=== PATIENT | male | born 1965 | race Caucasian/White ===

== ENCOUNTER 2021-07-25 23:38 | Observation (INO) | payer OTHER, SELFPAY ==
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
--- NOTE | ~2021-07-25 | US_ITS ---
EXAMINATION: US venous doppler [facility] DATE: 07/26/2021 12:37 INDICATION: Calf pain. TECHNIQUE: Grayscale ultrasound images without and with compression and Doppler ultrasound images of the bilateral lower extremity veins were obtained. COMPARISON: None. FINDINGS: The visualized portions of right common femoral vein, profunda (deep) femoral vein, femoral vein, pop liteal vein, peroneal veins, posterior tibial veins, and greater saphenous vein outflow are patent. The visualized portions of left common femoral vein, profunda femoral vein, femoral vein, popliteal v ein, peroneal veins, posterior tibial veins, and greater saphenous vein outflow are patent. IMPRESSION: 1. No deep venous thrombosis. Reviewed, dictated and finalized at location A.
[2021-07-25 23:40] VITALS: BP 215/101; PULSE 64; RESP 18; TEMP 36.6; O2SAT 99
[2021-07-25 23:54] VITALS: PULSE 71; RESP 21; O2SAT 100
[2021-07-25 23:56] VITALS: BP 196/105; PULSE 67; RESP 12; O2SAT 100
--- NOTE | 2021-07-25 23:56 | ECG_ITS ---
Measurements Intervals [place] Rate: 70 P: 66 FL: 168 QRS: 53 QRSD: 88 T: 56 QT: 375 QTc: 406 Interpretive Statements SINUS RHYTHM DELAYED PRECORDIAL R/S TRANSITION BASELINE ARTIFACT- I, III, AVR, AVL BORDERLINE ECG Electronically Signed On 07-26-2021 6:41:18 CDT by Gerhard Wylie D.O.
--- NOTE | 2021-07-25 23:58 | ED.CHESTPAIN ---
HPI - Chest Pain General Chief Complaint: Chest Pain Stated Complaint: abd/ chest pain Time Seen by Provider: 07/25/21 23:55 Source: patient Mode of arrival: ambulatory Limitations: no limitations History of Present Illness HPI narrative: Patient is a 56-year-old male complaining of chest pain, substernal, 7 out of 10, tightness, radiating to back accompanied by shortness of breath that started today. Patient denies any abdominal pain, nausea, vomiting, diaphoresis, fever or chills. Related Data Home Medications Medication Instructions Recorded Confirmed albuterol sulfate 1 - 2 puff INHALATION Q4H PRN 02/08/19 aspirin 81 mg PO DAILY 02/09/19 ibuprofen 800 mg PO Q6H PRN 02/09/19 Allergies Allergy/AdvReac Type Severity Reaction Status Date / Time clindamycin Allergy Intermediate Rash Verified 07/25/21 23:42 Penicillins Allergy Mild Rash Verified 07/25/21 23:42 Review of Systems Review of Systems: All systems reviewed & are unremarkable except as noted in HPI and below Constitutional: Constitutional: Denies body ache(s), Denies chills, Denies excessive sweating, Denies fatigue, Denies fever(s), Denies headache(s), Denies lethargy, Denies malaise, Denies weakness and Denies weight loss Eyes: Eyes: Denies blurry vision, Denies change in vision and Denies loss of vision ENT: Denies dizziness, Denies ear discharge, Denies headache(s), Denies lip swelling, Denies epistaxis, Denies nasal congestion, Denies neck pain, Denies throat swelling and Denies tongue swelling Cardiovascular: Cardiovascular: Denies diaphoresis, Denies rapid heart rate, Denies edema, Denies irregular heart rhythm, Denies lightheadedness, Denies palpitations, Denies dyspnea and Denies dyspnea on exertion Respiratory: Respiratory: Denies chest congestion, Denies cough, Denies hemoptysis, Denies dyspnea and Denies dyspnea on exertion Gastrointestinal: Gastrointestinal: Denies abdominal pain, Denies melena, Denies hematochezia, Denies diarrhea, Denies nausea, Denies vomiting and Denies hematemesis Musculoskeletal: Musculoskeletal: Denies abnormal gait, Denies deformity, Denies joint swelling, Denies limited range of motion, Denies neck pain and Denies numbness Neurologic: Denies Abnormal speech present, Denies abnormal gait, Denies confusion, Denies dizziness, Denies headache(s), Denies focal weakness, Denies loss of vision, Denies numbness, Denies Other visual disturbances, Denies Sensory deficit (Neuro) and Denies weakness Psychiatric: Psychiatric: Denies confusion, Denies depression, Denies auditory hallucinations, Denies homicidal ideation and Denies suicidal ideation Endocrine: Endocrine: Denies cold intolerance, Denies excessive sweating, Denies fatigue, Denies heat intolerance and Denies palpitations Hematologic/Lymphatic: Hematologic/Lymphatic: Denies easy bleeding and Denies easy bruising Allergic/Immunologic: Allergic/Immunologic: Denies lip swelling, Denies throat swelling and Denies tongue swelling PMFSH Past Medical History Medical History Seizures Surgical History Surgical History History of adenoidectomy History of cholecystectomy Social History Social History Smoking status: Current every day smoker Comments Past medical history: COPD, seizures, coronary artery disease Family history: Positive for coronary artery disease Social history: Positive for smoker, no EtOH or drug use Exam Const: General: cooperative, healthy appearing, comfortable, no acute distress, well developed, alert and awake; No confusion Orientation/consciousness: oriented to person, oriented to place, oriented to time, patient oriented x3 and No confusion Limitations: no limitations HENMT: Head: normal to inspection, normocephalic and atraumatic Ears: hearing grossly normal bilaterally, TM norm
[2021-07-26] VITALS (36 sets, daily range): BP systolic 124–213; BP diastolic 67–108; PULSE 56–77; RESP 12–22; TEMP 36.3–37.1; O2SAT 96–100; BMI 28.7; BMI 28.5
--- NOTE | 2021-07-26 | ECHO_ITS ---
Patient Info Name: Antonio Senior Age: 56 years : 1965 Gender: Male Ht: 70 in Wt: 199 lbs BSA: 2.13 m2 HR: 65 bpm BP: 176 / 79 mmHg Technical Quality: Good Exam Date: 07/26/2021 1:36 PM Exam Location: [facility] Patient Status: Inpatient Admit Date: 07/26/2021 Staff Ordering Physician: Navdeep Juárez MD Health Informatics Advisor: Stan Lam RDCS, RT Attending Provider: Turner Dhaliwal MD Exam Type: CA echo doppler color flow Study Info Indications R07.9 - Chest pain, unspecified Complete two-dimensional, color flow and Doppler transthoracic echocardiogram is performed. Summary 1. Complete two-dimensional, color flow and Doppler transthoracic echocardiogram is performed. 2. Left ventricular chamber dimension is normal. 3. Left ventricular systolic function is normal, estimated at 55-60%. 4. There is moderately increased left ventricular wall thickness. 5. The left ventricular diastolic function is grade I diastolic dysfunction. 6. E/e' 9 is minimally elevated. 7. Left atrial chamber dimension is mildly enlarged. Left Ventricle E/e' 9 is minimally elevated. Left ventricular chamber dimension is normal. Left ventricular systolic function is normal, estimated at 55-60%. There is moderately increased left ventricular wall thickness. The left ventricular diastolic function is grade I diastolic dysfunction. Right Ventricle Right ventricular systolic function is normal and with normal TAPSE 2.5 cm. Right ventricular chamber dimension is normal. Left Atria Left atrial chamber dimension is mildly enlarged. Right Atria Right atrial chamber dimension is normal. Aortic Valve The aortic valve is trileaflet. There is no aortic valve stenosis. There is no aortic valve regurgitation. Pulmonic Valve There is no pulmonic regurgitation. Mitral Valve There is no mitral valve stenosis. There is no mitral valve regurgitation. Tricuspid Valve There is no tricuspid valve regurgitation. Pericardium/Pleural There is no pericardial effusion. Inferior Vena Cava Normal inferior vena cava with >50% collapse upon inspiration consistent with normal right atrial pressure, 5 mmHg. Aorta The aortic root size at the sinus of Valsalva is normal. Left Ventricular Outflow Tract Name Value Normal LVOT 2D LVOT Diameter 2.0 cm LVOT Doppler LVOT Peak Gradient 5 mmHg LVOT Mean Gradient 3 mmHg LVOT VTI 24 cm LVOT VTI/AV VTI Ratio 0.7 LVOT Stroke Volume 77 ml LVOT CO 5.6 l/min LVOT CI 2.6 l/min/m2 Mitral Valve Name Value Normal MV Doppler MV Decel Shackelf[place] 239 cm/s2 MV PHT 97 ms
[2021-07-26 00:18] LABS: Basophils Absolute Auto 0.1 K/mm3 (0.0-0.1); Basophils Percent Auto 0.6 % (0.2-1.2); Eosinophils Absolute Auto 0.3 K/mm3 (0-0.3); Eosinophils Percent Auto 2.9 % (0-4.4); Hematocrit 45.5 % (42.0-52.0); Hemoglobin 14.7 g/dL (14.0-18.0); Immature Granulocyte Absolute 0.03 K/mm3 (0.00-0.031); Immature Granulocyte Percent A 0.3 % (0-0.5); Lymphocytes Absolute Auto 3.49 K/mm3 (0.9-3.2); Lymphocytes Percent Auto 31.9 % (18.3-44.2); Mean Corpuscular HGB Conc 32.3 g/dl (32-36); Mean Corpuscular Hemoglobin 30.1 pg (26-34); Mean Corpuscular Volume 93.2 fl (80-100); Mean Platelet Volume 10.6 fl (7.4-10.4); Monocytes Percent Auto 8.8 % (2.6-8.5); Neutrophils Absolute Auto 6.1 K/mm3 (1.3-6.7); Neutrophils Percent Auto 55.5 % (45.5-73.1); Platelet Count Result 265 k/mm3 (150-375); Red Blood Count 4.88 M/mm3 (4.6-6.20); Red Cell Distribution Width 13.8 % (11.5-14.5); White Blood Count 10.9 K/mm3 (4.5-10.0)
[2021-07-26 00:24] LABS: Prothrombin Time 12.9 Seconds (11.1-14.7)
[2021-07-26 00:25] LABS: Partial Thromboplastin Time 31.3 SECONDS (22.3-36.8)
[2021-07-26 00:48] LABS: Alanine Aminotransferase 31 U/L (6-50); Albumin Level 4.6 g/dL (3.5-5.1); Alkaline Phosphatase 93 U/L (38-126); Aspartate Amino Transferase 32 U/L (17-59); Bilirubin,Total 0.3 mg/dL (0.2-1.3); Blood Urea Nitrogen 6 mg/dL (9-20); Calcium 8.9 mg/dL (8.4-10.2); Carbon Dioxide 29 mmol/L (22-30); Chloride 101 mmol/L (98-107); Estimated CRCL calculation 93 ml/min; Estimated Glomerular Filt Rate > 60; Glucose 104 mg/dL (65-110); Lipase 47 U/L (23-300); Potassium 4.7 mmol/L (3.4-5.0)
[2021-07-26 00:58] LABS: Troponin I 0.013 ng/mL (0.000-0.034)
[2021-07-26 00:59] LABS: NT Pro B Type Natriuretic Pept 32 pg/mL (5-100)
[2021-07-26 01:06] LABS: Anion Gap 9 mmol/L (8-16); Sodium 139 mmol/L (137-145)
[2021-07-26] MEDS: ASPIRIN 81 MG CHEWABLE TABLET 324 MG PO (01:10)
[2021-07-26] MEDS: MORPHINE SULFATE (*CRX) 2 MG/ML INJ IV PUSH (01:46)
[2021-07-26] MEDS: LABETALOL HCL INJ 100 MG/20 ML VIAL 20 MG IV PUSH (01:46)
--- NOTE | 2021-07-26 02:35 | ADMGEN ---
This patient, Antonio Contreras, was admitted to IMU Room 213-01 at 0230. Patient/family oriented to hospital policies and general routines including ID bracelet, bed and alarms, visiting hours, pain management, procedures, bathroom and other care routines, personal items, smoking policy, room service/diet, and visiting hours. Information on how to activate the Rapid Response Team has been discussed. Patient/Family are encouraged to report perceived risks to care and to ask questions if they do not understand what they are told or what they should do.
[2021-07-26 06:20] LABS: Troponin I 0.019 ng/mL (0.000-0.034)
[2021-07-26] MEDS: ASPIRIN 81 MG CHEWABLE TABLET PO (08:51)
[2021-07-26] MEDS: MONTELUKAST SODIUM 10 MG TABLET PO (08:52)
[2021-07-26] MEDS: busPIRone HCL 10 MG TABLET PO ×2 (08:52→17:00)
[2021-07-26] MEDS: PHENYTOIN SODIUM 100 MG EXTENDED RELEASE CAP PO (08:57)
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
[2021-07-26] MEDS: LOSARTAN POTASSIUM 25 MG TABLET PO (11:06)
[2021-07-26] MEDS: PANTOPRAZOLE 40 MG TABLET PO ×2 (11:17→21:06)
--- NOTE | 2021-07-26 12:43 | PC.NURSE ---
1125- to [place] dept for test
[2021-07-26 13:43] LABS: Appearance Urine Clear (Clear); Bilirubin Urine Negative (Negative); Blood Urine Negative (Negative); Color Urine Yellow (Yellow); Glucose Urine UA Negative (Negative); Ketones Urine Negative (Negative); Leukocyte Esterase Ur Negative LEU/UL (Negative); Nitrate Urine Negative (Negative); Protein Urine Negative (Negative); Specific Grav Ur 1.015 (1.001-1.035); Urobilinogen Urine 0.2 mg/dL (<2.0)
[2021-07-26 13:46] LABS: Add Urine Microscopic? NO
[2021-07-26] MEDS: ACETAMINOPHEN 325 MG TABLET 650 MG PO (18:32)
[2021-07-26] MEDS: PHENYTOIN SODIUM 100 MG EXTENDED RELEASE CAP 200 MG PO (21:05)
[2021-07-26] MEDS: QUEtiapine FUMARATE 25 MG TABLET 50 MG PO (21:06)
[2021-07-26] MEDS: ALBUTEROL SULFATE (*SP) AEROSOL 1 PUFF 2 PUFF INHALATION (21:14)
[2021-07-27] VITALS (7 sets, daily range): BP systolic 117–143; BP diastolic 66–75; PULSE 53–79; RESP 17–20; TEMP 36.1–36.7; O2SAT 96–98
[2021-07-27 04:56] LABS: Cholesterol 252 mg/dL (0-200); HDL Direct 42 mg/dL; Phenytoin Dilantin 4 ug/mL (10-20); Triglycerides 84 mg/dL (<150)
[2021-07-27 05:04] LABS: LDL Cholesterol Direct 161 mg/dL
[2021-07-27] MEDS: ASPIRIN 81 MG CHEWABLE TABLET PO (08:22)
[2021-07-27] MEDS: busPIRone HCL 10 MG TABLET PO (08:22)
[2021-07-27] MEDS: LOSARTAN POTASSIUM 25 MG TABLET PO (08:22)
[2021-07-27] MEDS: MONTELUKAST SODIUM 10 MG TABLET PO (08:22)
[2021-07-27] MEDS: PANTOPRAZOLE 40 MG TABLET PO (08:22)
[2021-07-27] MEDS: ACETAMINOPHEN 325 MG TABLET 650 MG PO (08:27)
[2021-07-27] MEDS: PHENYTOIN SODIUM 100 MG EXTENDED RELEASE CAP PO (08:51)
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
== END 2021-07-27 14:51 | disposition home or self-care (01) ==
LOC: ANHED 07-26 02:01 → ANHIMU 07-26 03:01
PROVIDERS: Admitting Provider Internal Medicine; Emergency Provider Emergency Medicine; PCP Nurse Practitioner Family; Visit Provider Internal Medicine
DX: R07.9 Chest pain, unspecified (principal); I16.0 Hypertensive urgency; M54.9 Dorsalgia, unspecified; M54.2 Cervicalgia; R10.9 Unspecified abdominal pain; V89.2XXA Person injured in unspecified motor-vehicle accident, traffic, initial encounter; F17.210 Nicotine dependence, cigarettes, uncomplicated; I25.10 Atherosclerotic heart disease of native coronary artery without angina pectoris; J44.9 Chronic obstructive pulmonary disease, unspecified; G40.909 Epilepsy, unspecified, not intractable, without status epilepticus; Z79.82 Long term (current) use of aspirin; F41.8 Other specified anxiety disorders; I73.9 Peripheral vascular disease, unspecified
CPT/HCPCS: 36415; 70450; 71046; 71275; 72125; 74174; 80053; 80061; 80185; 81003; 83690; 83880; 84484; 85025; 85610; 85730; 93005; 93306; 93970; 94640; 96374; 96375; 99285; A9270; G0378; J2270; Q9967

== ENCOUNTER 2023-01-04 23:27 | Emergency (ER) | payer OTHER, SELFPAY ==
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
[2023-01-04 23:29] VITALS: BP 173/85; PULSE 76; RESP 15; TEMP 36.4; O2SAT 100
--- NOTE | 2023-01-05 00:22 | ED.GENADULT ---
HPI - General Adult General Chief complaint: Extremity Injury, Lower <JINNY Swartz Last Filed: 01/05/23 01:21> Stated complaint: Left lower plasencia pain, lost balance on steps <JINNY Swartz Last Filed: 01/05/23 01:21> Time Seen by Provider: 01/04/23 23:37 <Fredy Wyman PA-C - Last Filed: 01/05/23 01:21> Source: patient <JINNY Swartz Last Filed: 01/05/23 01:21> Mode of arrival: ambulatory <JINNY Swartz Last Filed: 01/05/23 01:21> Limitations: no limitations <JINNY Swartz Last Filed: 01/05/23 01:21> History of Present Illness HPI narrative: This is a 57-year-old male who presents to the ED with chief complaint of left lower leg pain following an injury tonight. Patient states he was walking on steps at work when he accidentally slipped and hit his plasencia went directly into the corner of the stair. Pain to left plasencia. He has minor abrasion to the left hand as well but states this is not painful. Denies any numbness or weakness. Denies any further site of pain or injury. <Fredy Wyman PA-C - Last Filed: 01/05/23 01:21> Related Data Home medications: Home Medications Medication Instructions Recorded Confirmed aspirin 81 mg chewable tablet 81 mg PO DAILY 02/09/19 07/26/21 buspirone 10 mg tablet 10 mg PO BID 07/26/21 07/26/21 diclofenac sodium 75 mg 75 mg PO BID 07/26/21 07/26/21 tablet,delayed release loratadine 10 mg tablet 10 mg PO DAILY 07/26/21 07/26/21 quetiapine 50 mg tablet 50 mg PO HS 07/26/21 07/26/21 <JINNY Swartz Last Filed: 01/05/23 01:21> Allergies/adverse reactions: Allergies Allergy/AdvReac Type Severity Reaction Status Date / Time clindamycin Allergy Intermediate Rash Verified 01/04/23 23:38 Penicillins Allergy Mild Rash Verified 01/04/23 23:38 steroids Allergy Intermediate Hyperactive Uncoded 08/25/21 16:02 <JINNY Swartz Last Filed: 01/05/23 01:21> Review of Systems Review of Systems: All systems as dictated in HPI <JINNY Swartz Last Filed: 01/05/23 01:21> PMFSH Past Medical History Medical History: Medical History Anxiety with depression COPD (chronic obstructive pulmonary disease) Leg fracture, left as a child PAD (peripheral artery disease) Left femoral stent placement Seizures <JINNY Swartz Last Filed: 01/05/23 01:21> Surgical History Surgical History: Surgical History History of adenoidectomy History of cholecystectomy complicated by cardiac arrest during the procedure <JINNY Swartz Last Filed: 01/05/23 01:21> Family History Family History: Family History Sibling Heart disease CAD in his 2 brothers in there 60's; another brother with sudden <JINNY Swartz Last Filed: 01/05/23 01:21> Social History Social History: Social History Social History: Denies alcohol use. Denies drug use. Lives with his girlfriend. Full code. Nominates his girlfriend Garrison Watkins to be the individual make medical decisions for him if he is unable. Smoking packs per day: 1.5 Smoking cigarettes per day: 30.0 Years smoked: 35 Smoking pack-years: 52.50 Smoking status: Current every day smoker Tobacco type: cigarettes Second hand tobacco smoke exposure: Yes Alcohol intake: former Substance use: never Substance use type: does not use Spiritual care concerns: No <JINNY Swartz Last Filed: 01/05/23 01:21> Exam Narrative: GENERAL: Well-appearing, well-nourished, and in no acute distress. HEAD: Normocephalic, atraumatic. EYES: PERRLA and EOMI. ENT: Nares clear, no rhinorrhea or epistaxis. Mucous membranes moist. Oropharynx without tonsillar hypertrophy exudate or other lesions. NEC
== END 2023-01-05 01:14 | disposition home or self-care (01) ==
LOC: ANHED 01-05 01:06
PROVIDERS: Emergency Provider Physician Assistant; PCP Nurse Practitioner Family
DX: S80.12XA Contusion of left lower leg, initial encounter (principal); J44.9 Chronic obstructive pulmonary disease, unspecified; I73.9 Peripheral vascular disease, unspecified; F41.8 Other specified anxiety disorders; F17.210 Nicotine dependence, cigarettes, uncomplicated; Z90.49 Acquired absence of other specified parts of digestive tract; Z79.82 Long term (current) use of aspirin; W10.9XXA Fall (on) (from) unspecified stairs and steps, initial encounter
CPT/HCPCS: 73590; 99283

== ENCOUNTER 2023-03-19 07:56 | Emergency (ER) | payer OTHER, SELFPAY ==
[2023-03-19] VITALS (16 sets, daily range): BP systolic 132–167; BP diastolic 72–93; PULSE 67–88; RESP 15–23; TEMP 37–37.3; O2SAT 95–100
--- NOTE | 2023-03-19 10:18 | ED.GENADULT ---
HPI - General Adult General Chief complaint: Upper Respiratory Infection Stated complaint: COVID Time Seen by Provider: 03/19/23 09:38 Source: patient Mode of arrival: ambulatory Limitations: no limitations History of Present Illness HPI narrative: This is a 58-year-old male who presents to the ED with chief complaint URI symptoms for the past 2 days. Reports he was seen urgent care yesterday and tested positive for COVID. Reports he has a lot of headache. He has a history of epilepsy and just wants to get checked out. Patient reports he has had some intermittent fevers and does not want them to trigger an episode of epilepsy. He reports that he has been taking his medications regularly. History of COPD as well and has been taking his inhaler. States he feels very dehydrated. Denies chest pain, abdominal pain, nausea, vomiting, diarrhea, LOC, numbness, weakness, neck pain. Related Data Home Medications Medication Instructions Recorded Confirmed aspirin 81 mg chewable tablet 81 mg PO DAILY 02/09/19 07/26/21 buspirone 10 mg tablet 10 mg PO BID 07/26/21 07/26/21 diclofenac sodium 75 mg 75 mg PO BID 07/26/21 07/26/21 tablet,delayed release loratadine 10 mg tablet 10 mg PO DAILY 07/26/21 07/26/21 quetiapine 50 mg tablet 50 mg PO HS 07/26/21 07/26/21 Allergies Allergy/AdvReac Type Severity Reaction Status Date / Time clindamycin Allergy Intermediate Rash Verified 03/19/23 09:56 Penicillins Allergy Mild Rash Verified 03/19/23 09:56 steroids Allergy Intermediate Hyperactive Uncoded 03/19/23 09:56 Review of Systems Review of Systems: All systems as dictated in HPI [facility] Past Medical History Medical History Anxiety with depression COPD (chronic obstructive pulmonary disease) Leg fracture, left as a child PAD (peripheral artery disease) Left femoral stent placement Seizures Surgical History Surgical History History of adenoidectomy History of cholecystectomy complicated by cardiac arrest during the procedure Family History Family History Sibling Heart disease CAD in his 2 brothers in there 60's; another brother with sudden Social History Social History Social History: Denies alcohol use. Denies drug use. Lives with his girlfriend. Full code. Nominates his girlfriend Garrison Watkins to be the individual make medical decisions for him if he is unable. Smoking packs per day: 1.5 Smoking cigarettes per day: 30.0 Years smoked: 35 Smoking pack-years: 52.50 Smoking status: Current every day smoker Tobacco type: cigarettes Second hand tobacco smoke exposure: Yes Alcohol intake: former Substance use: never Substance use type: does not use Spiritual care concerns: No Exam Narrative: GENERAL: Well-appearing, well-nourished, and in no acute distress. HEAD: Normocephalic, atraumatic. EYES: PERRLA and EOMI. ENT: Dry mucous membranes. Posterior oropharynx erythematous with no swelling or tonsillar hypertrophy. No exudates. nares clear, no rhinorrhea or epistaxis. Mucous membranes moist. NECK: Supple. No adenopathy or masses. CHEST: No respiratory distress. Clear to auscultation. No wheezes rales or rhonchi. 95% room air. HEART: Regular rate and rhythm. No murmur heard. Normal peripheral pulses. ABDOMEN: Soft, nontender, nondistended, normal active bowel sounds. MSK: Normal range of motion. No edema. SKIN: Warm, dry, no rash. NEURO: Alert and oriented x3. No focal deficits. PSYCH: Normal mood and affect. Course Vital Signs Vital signs: Vital Signs Temperature 98.7 F 03/19/23 08:01 Pulse Rate 88 03/19/23 08:01 Respiratory Rate 18 03/19/23 08:01 Blood Pressure 142/72 H 03/19/23 08:01 Pulse Oximetry 96 03/19/23 08:01 Oxygen Delivery Room
[2023-03-19] MEDS: ACETAMINOPHEN 500 MG TABLET 1000 MG PO (10:28)
[2023-03-19] MEDS: SODIUM CHLORIDE 0.9% IV 1,000 ML 999 ML IV CONT (10:29)
[2023-03-19 10:31] LABS: Basophils Percent Auto 0.3 % (0.2-1.2); Eosinophils Percent Auto 0.1 % (0-4.4); Hematocrit 43.9 % (42.0-52.0); Hemoglobin 14.3 g/dL (14.0-18.0); Immature Granulocyte Absolute 0.03 K/mm3 (0.00-0.031); Immature Granulocyte Percent A 0.4 % (0-0.5); Lymphocytes Absolute Auto 0.69 K/mm3 (0.9-3.2); Lymphocytes Percent Auto 10.1 % (18.3-44.2); Mean Corpuscular HGB Conc 32.6 g/dl (32-36); Mean Corpuscular Hemoglobin 30.1 pg (26-34); Mean Corpuscular Volume 92.4 fl (80-100); Monocytes Absolute Auto 1.5 K/mm3 (0.1-0.6); Monocytes Percent Auto 21.3 % (2.6-8.5); Neutrophils Absolute Auto 4.6 K/mm3 (1.3-6.7); Neutrophils Percent Auto 67.8 % (45.5-73.1); Platelet Count Result 223 k/mm3 (150-375); Red Blood Count 4.75 M/mm3 (4.6-6.20); Red Cell Distribution Width 13.7 % (11.5-14.5); White Blood Count 6.8 K/mm3 (4.5-10.0)
[2023-03-19 10:41] LABS: Anion Gap 8 mmol/L (8-16); Blood Urea Nitrogen 13 mg/dL (9-20); Calcium 8.6 mg/dL (8.4-10.2); Carbon Dioxide 25 mmol/L (22-30); Chloride 102 mmol/L (98-107); Estimated CRCL calculation 102 ml/min; Estimated Glomerular Filt Rate > 60; Glucose 105 mg/dL (65-110); Potassium 4.1 mmol/L (3.4-5.0); Sodium 135 mmol/L (137-145)
[2023-03-19] MEDS: KETOROLAC 15 MG/ML VIAL (*BKC) IV PUSH (11:29)
[2023-03-19] MEDS: ONDANSETRON INJ 4 MG/2 ML VIAL IV PUSH (11:29)
== END 2023-03-19 11:59 | disposition home or self-care (01) ==
PROVIDERS: Emergency Provider Physician Assistant; PCP Nurse Practitioner Family
DX: U07.1 COVID-19 (principal); J06.9 Acute upper respiratory infection, unspecified; G40.909 Epilepsy, unspecified, not intractable, without status epilepticus; J44.9 Chronic obstructive pulmonary disease, unspecified; I73.9 Peripheral vascular disease, unspecified; F41.8 Other specified anxiety disorders; F17.210 Nicotine dependence, cigarettes, uncomplicated; Z90.49 Acquired absence of other specified parts of digestive tract; Z79.82 Long term (current) use of aspirin
CPT/HCPCS: 36415; 80048; 85025; 96361; 96374; 96375; 99284; A9270; J1885; J2405; J7030

== ENCOUNTER 2023-08-21 15:49 | Emergency (ER) | payer OTHER, SELFPAY ==
--- NOTE | ~2023-08-21 | XR_ITS ---
EXAMINATION: XR chest 1V portable Exam Date/Time: 08/21/2023 18:00 CDT HISTORY: cough , copd Comparison: 07/26/2021. RESULT: Lines, tubes, and devices: None. Lungs and pleura: Clear. Cardiomediastinal silhouette: Stable. Other: No acute osseous or upper abdominal finding. IMPRESSION: No acute cardiopulmonary process. Reviewed, dictated and finalized at location K.
[2023-08-21 15:59] VITALS: BP 132/78; PULSE 89; RESP 20; TEMP 36.6; O2SAT 98
[2023-08-21 17:24] LABS: Influenza A QL RT-PCR Negative (Negative); Influenza B QL RT-PCR Negative (Negative); RSV RNA, RT-PCR Negative (Negative); SARS-CoV-2 RNA PCR Negative (Negative)
--- NOTE | 2023-08-21 17:52 | ECG_ITS ---
Test Date: 2023-08-21 18:13:51 Measurements Intervals [place] Rate: 79 P: 57 DC: 159 QRS: 56 QRSD: 90 T: 39 QT: 372 QTc: 427 Interpretive Statements SINUS RHYTHM No previous ECG available for comparison Electronically Signed On 08-22-2023 14:35:21 CDT by Florencia Maldonado M.D.
[2023-08-21 18:15] LABS: Basophils Absolute Auto 0.1 K/mm3 (0.0-0.1); Basophils Percent Auto 0.5 % (0.2-1.2); Eosinophils Absolute Auto 0.2 K/mm3 (0-0.3); Hematocrit 43.2 % (42.0-52.0); Hemoglobin 14.5 g/dL (14.0-18.0); Immature Granulocyte Absolute 0.04 K/mm3 (0.00-0.031); Immature Granulocyte Percent A 0.3 % (0-0.5); Lymphocytes Absolute Auto 2.13 K/mm3 (0.9-3.2); Lymphocytes Percent Auto 18.1 % (18.3-44.2); Mean Corpuscular HGB Conc 33.6 g/dl (32-36); Mean Corpuscular Hemoglobin 30.9 pg (26-34); Mean Corpuscular Volume 92.1 fl (80-100); Mean Platelet Volume 10.5 fl (7.4-10.4); Monocytes Absolute Auto 1.2 K/mm3 (0.1-0.6); Monocytes Percent Auto 10.3 % (2.6-8.5); Neutrophils Absolute Auto 8.1 K/mm3 (1.3-6.7); Neutrophils Percent Auto 68.8 % (45.5-73.1); Platelet Count Result 260 k/mm3 (150-375); Red Blood Count 4.69 M/mm3 (4.6-6.20); Red Cell Distribution Width 13.3 % (11.5-14.5); White Blood Count 11.8 K/mm3 (4.5-10.0)
[2023-08-21 18:25] LABS: Alanine Aminotransferase 27 U/L (6-50); Albumin Level 4.7 g/dL (3.5-5.1); Alkaline Phosphatase 117 U/L (38-126); Anion Gap 6 mmol/L (4-12); Aspartate Amino Transferase 29 U/L (17-59); Bilirubin,Total 0.6 mg/dL (0.2-1.3); Blood Urea Nitrogen 8 mg/dL (9-20); Calcium 9.1 mg/dL (8.4-10.2); Carbon Dioxide 29 mmol/L (22-30); Chloride 104 mmol/L (98-107); Estimated CRCL calculation 102 ml/min; Estimated Glomerular Filt Rate > 60; Glucose 97 mg/dL (65-110); Potassium 4.3 mmol/L (3.4-5.0); Sodium 139 mmol/L (137-145)
--- NOTE | 2023-08-21 18:30 | ED.URI ---
HPI - URI/Sore Throat General Chief Complaint: Upper Respiratory Infection Stated Complaint: flu symptoms Time Seen by Provider: 08/21/23 17:47 Source: patient Mode of arrival: ambulatory Limitations: no limitations History of Present Illness HPI Narrative: 58-year-old with a history of COPD, anxiety disorder here with a complaint of cough for past 2 days. He has occasional short of breath his knee he uses nebulizers at home. He denies any fever or chills. Denies any chest pain however complains of pain in his ribs whenever he coughs. No history of nausea vomiting. MD elicited complaint: cough and nasal congestion Pertinent past history: COPD Onset (ago): day(s) (2) Consistency: constant Severity: moderate Description of mucous: clear Exacerbating factors: nothing Associated symptoms: denies other symptoms Related Data Home Medications Medication Instructions Recorded Confirmed aspirin 81 mg chewable tablet 81 mg PO DAILY 02/09/19 07/26/21 buspirone 10 mg tablet 10 mg PO BID 07/26/21 07/26/21 loratadine 10 mg tablet 10 mg PO DAILY 07/26/21 07/26/21 quetiapine 50 mg tablet 50 mg PO HS 07/26/21 07/26/21 ascorbic acid (vitamin C) 1,000 mg 1 g PO DAILY 04/24/23 capsule Allergies Allergy/AdvReac Type Severity Reaction Status Date / Time clindamycin Allergy Intermediate Rash Verified 08/21/23 16:03 Penicillins Allergy Mild Rash Verified 08/21/23 16:03 steroids Allergy Intermediate Hyperactive Uncoded 04/24/23 11:36 Review of Systems Review of Systems: All systems reviewed & are unremarkable except as noted in HPI and below Constitutional: Constitutional: Reports no additional constitutional complaints Eyes: Eyes: Reports no additional eye complaints ENT: Reports system reviewed and no additional complaints, except as documented Cardiovascular: Cardiovascular: Reports no additional cardiovascular complaints Respiratory: Respiratory: Reports as per HPI Musculoskeletal: Musculoskeletal: Reports no additional musculoskeletal complaints Integumentary/Breasts: Skin/Breast: Reports system reviewed and no additional complaints, except as docu Neurologic: Reports system reviewed and no additional complaints, except as documented [facility] Past Medical History Medical History Anxiety with depression COPD (chronic obstructive pulmonary disease) Leg fracture, left as a child PAD (peripheral artery disease) Left femoral stent placement Seizures Surgical History Surgical History History of adenoidectomy History of cholecystectomy complicated by cardiac arrest during the procedure Family History Family History Sibling Heart disease CAD in his 2 brothers in there 60's; another brother with sudden Social History Social History Social History: Denies alcohol use. Denies drug use. Lives with his girlfriend. Full code. Nominates his girlfriend Garrison Watkins to be the individual make medical decisions for him if he is unable. Smoking packs per day: 1 Smoking cigarettes per day: 20.0 Years smoked: 35 Smoking pack-years: 35.00 Smoking status: Current every day smoker Tobacco type: cigarettes Second hand tobacco smoke exposure: Yes Alcohol intake: former Substance use: never Substance use type: does not use Do You Feel Safe in your Home?: Yes Lack of Transportation: No Lack of Food: Never True Current Housing: I Have Housing Concerned About Future Housing: No Difficulty Paying Gas/Electric Bills: No Difficulty Paying for Meds: No Currently Unemployed: No Education: High School Diploma/GED Difficulty w/ Childcare or Family Care: No Spiritual care concerns: No Exam Narrative: GENERAL: Well-appearing, well-nourished, and in no acute distr
[2023-08-21 18:34] LABS: NT Pro B Type Natriuretic Pept < 20 pg/mL (19.9-100)
[2023-08-21 18:52] VITALS: BP 146/68; PULSE 83; RESP 28; O2SAT 95
== END 2023-08-21 18:58 | disposition home or self-care (01) ==
PROVIDERS: Emergency Medicine; Emergency Provider Family Medicine; PCP Nurse Practitioner Family
DX: J44.89 Other specified chronic obstructive pulmonary disease (principal); Z20.822 Contact with and (suspected) exposure to COVID-19; I73.9 Peripheral vascular disease, unspecified; F41.8 Other specified anxiety disorders; F17.210 Nicotine dependence, cigarettes, uncomplicated; Z90.49 Acquired absence of other specified parts of digestive tract; Z79.82 Long term (current) use of aspirin; Z79.899 Other long term (current) drug therapy
CPT/HCPCS: 36415; 71045; 80053; 83880; 85025; 87040; 87637; 93005; 99283

== ENCOUNTER 2024-01-28 15:27 | Emergency (ER) | payer OTHER, SELFPAY ==
--- NOTE | ~2024-01-28 | CT_ITS ---
EXAMINATION: CT brain wo con DATE: 01/28/2024 18:08 INDICATION: fall in shower, possible HI . TECHNIQUE: Computed tomography (CT) of the head was performed without intravenous contrast. The mA wa s adjusted according to patient size. Iterative reconstruction technique was employed. The dose-lengt h product was 681.00 mGy-cm. COMPARISON: 07/26/2021. FINDINGS: No acute intracranial hemorrhage or extra-axial fluid collection. No hydrocephalus, mass, or herniation. No acute ischemic infarct. Unremarkable dural venous sinus attenuation. No acute osseous abnormality. Poorly pneumatized mastoid air cells, ethmoid mucosal thickening, the remaining aerated spaces are cl ear. Atherosclerotic intracranial calcifications. Left frontal meningioma. IMPRESSION: No acute intracranial process. Reviewed, dictated and finalized at location K. TIC PHYSICIAN
--- NOTE | ~2024-01-28 | CT_ITS ---
EXAMINATION: CT chest abdomen pelvis w con DATE: 01/28/2024 18:08 INDICATION: fall in shower, pain ribs/abd/R lower abd hematoma . TECHNIQUE: Computed tomography (CT) of the chest, abdomen, and pelvis was performed with 100 mL Omnip aque-350 intravenous contrast. Automated exposure control and iterative reconstruction technique were employed. The dose-length product was 1077.11 mGy-cm. COMPARISON: 07/26/2021 FINDINGS: CHEST: No thoracic aortic injury. No mediastinal hematoma. No pericardial effusion. No acute lung injury. No pleural effusion or pneumothorax. ABDOMEN/PELVIS: No solid organ injury. 6.0 cm simple right renal cyst. No evidence of bowel or mesenteric injury. Status post cholecystectomy. Diverticulosis without divert iculitis. No free fluid or free air. No retroperitoneal hematoma. Pelvic contents are atraumatic. MUSCULOSKELETAL: Nondisplaced fracture of the right anterolateral seventh rib. No fracture or traumatic malalignment of the thoracic or lumbar spine. 5.8 x 3.9 cm right lateral subcutaneous hematoma with surrounding stranding, at the level of the righ t iliac crest. IMPRESSION: Nondisplaced fracture of the right anterolateral seventh rib. 5.8 cm right lateral subcutaneous hematoma at the level of the right iliac crest. Reviewed, dictated and finalized at location K. [employer]MENT [employer]ANNER IMPRESSION: Nondisplaced fracture of the right anterolateral seventh rib. 5.8 cm right lateral subcutaneous hematoma at the level of the right iliac oscar t.
--- NOTE | ~2024-01-28 | XR_ITS ---
EXAMINATION: [id number] Exam Date/Time: 01/28/2024 16:20 RN CARDIOVASCULAR HISTORY: fall Comparison: 08/21/23. RESULT: Lines, tubes, and devices: None. Lungs and pleura: Clear. Cardiomediastinal silhouette: Stable. Other: No acute osseous or upper abdominal finding. IMPRESSION: No acute cardiopulmonary process. No acute osseous finding in the right ribs. Reviewed, dictated and finalized at location K. CARDIOVASCULAR
--- NOTE | ~2024-01-28 | CT_ITS ---
EXAMINATION: CT cervical spine wo con DATE: 01/28/2024 18:08 INDICATION: fall in shower TECHNIQUE: Computed tomography (CT) of the cervical spine was performed without intravenous contrast. Automated exposure control and iterative reconstruction technique were employed. The dose-length pro duct was 485.64 mGy-cm. COMPARISON: None. FINDINGS: Vertebral Body Alignment: Intact. Craniocervical and atlantoaxial alignment: Moderate degenerative change. Alignment intact. Osseous structures/fracture: No evidence of a lytic or blastic process in the visualized spine. No e vidence of acute fracture. Cervical soft tissues: The paraspinal soft tissues planes are maintained. 1.7 cm right thyroid nodule . Degenerative changes: Degenerative changes, without severe neural foraminal or central canal narrowin g. IMPRESSION: No acute fracture or traumatic malalignment in the cervical spine. 1.7 cm right thyroid nodule, recommend outpatient thyroid ultrasound for further characterization. Reviewed, dictated and finalized at location K. SCALER IMPRESSION: No acute fracture or traumatic malalignment in the cervical spine. 1.7 cm right thyroid nodule, recommend outpatient thyroid ultrasound for furthe r characterization.
[2024-01-28 15:30] VITALS: BP 172/86; PULSE 92; RESP 17; TEMP 36.4; O2SAT 100
--- NOTE | 2024-01-28 17:10 | ED_ITS ---
HPI - Fall General Chief Complaint: Fall <JINNY Gonzalez Last Filed: 01/28/24 17:20> Stated Complaint: fall <JINNY Gonzalez Last Filed: 01/28/24 17:20> Time Seen by Provider: 01/28/24 17:10 <JINNY Gonzalez Last Filed: 01/28/24 17:20> Focused HPI: Patient is a 58 y/o male who presents to the ED with c/o a fall. Patient reports he slipped in the shower and fell to onto his R side. Denied feeling dizzy/lightheaded, passing out. Does not think he hit his head, but is unsure. Denied LOC. C/o severe pain to his R anterolateral ribs, R upper and lateral lower abdomen. Worse with deep breathing, movement. Reports having mild difficulty breathing d/t pain. Denies N/V. GENERAL: Appears older than stated age, and in no acute distress. HEAD: Normocephalic, atraumatic. CHEST: Clear to auscultation. ?No respiratory distress. HEART: Regular rate and rhythm.? MSK: Moderate TTP in R anterior lateral chest wall/inferior rib cage. TTP along upper thoracic spine, R posterior scapular region. ABD: Mild TTP in upper abdomen. Normoactive BS. Hematoma formation in R lateral lower abdomen with bruising present. NEURO: ?Alert and oriented x3. Follows commands. Patient screened in triage and initial orders placed.? ?Additional care and disposition to be based upon?diagnostic testing and treatment. <JINNY Gonzalez Last Filed: 01/28/24 17:20> Source: patient <JINNY Gonzalez Last Filed: 01/28/24 17:20> Mode of arrival: ambulatory <JINNY Gonzalez Last Filed: 01/28/24 17:20> Limitations: no limitations <JINNY Gonzalez Last Filed: 01/28/24 17:20> History of Present Illness HPI Narrative: HPI per MSE. Pt fell in shower landing on right side on tub. Pt coplains of right rib pain ans some right hip apin. <Lissa Syed III, DO - Last Filed: 01/28/24 19:01> Related Data Home Medications: Home Medications Medication Instructions Recorded Confirmed aspirin 81 mg chewable tablet 81 mg PO DAILY 02/09/19 07/26/21 buspirone 10 mg tablet 10 mg PO BID 07/26/21 07/26/21 loratadine 10 mg tablet 10 mg PO DAILY 07/26/21 07/26/21 quetiapine 50 mg tablet 50 mg PO HS 07/26/21 07/26/21 ascorbic acid (vitamin C) 1,000 mg 1 g PO DAILY 04/24/23 capsule <JINNY Gonzalez Last Filed: 01/28/24 17:20> Allergies/Adverse Reactions: Allergies Allergy/AdvReac Type Severity Reaction Status Date / Time clindamycin Allergy Intermediate Rash Verified 08/21/23 16:03 Penicillins Allergy Mild Rash Verified 08/21/23 16:03 steroids Allergy Intermediate Hyperactive Uncoded 04/24/23 11:36 <JINNY Gonzalez Last Filed: 01/28/24 17:20> Review of Systems Review of Systems: All systems reviewed & are unremarkable except as noted in HPI and below <Lissa Syed III, DO - Last Filed: 01/28/24 19:01> PMFSH Past Medical History Medical History: Medical History Anxiety with depression COPD (chronic obstructive pulmonary disease) Leg fracture, left as a child PAD (peripheral artery disease) Left femoral stent placement Seizures <JINNY Gonzalez Last Filed: 01/28/24 17:20> Surgical History Surgical History: Surgical History History of adenoidectomy History of cholecystectomy complicated by cardiac arrest during the procedure <JINNY Gonzalez Last Filed: 01/28/24 17:20> Family History Family History: Family History Sibling Heart disease CAD in his 2 brothers in there 60's; another brother with sudden <Cindi Sagastume PA-C - Last Filed: 01/28/24 17:20> Social History Social History: Social History Social History: Denies alcohol use. Denies drug use. Lives with his girlfriend. Full code. Nominates his girlfriend Garrison Watkins to be the individual make medical decisions for him if he is unable. Smoking packs per day: 1 Smoking cigarettes per day: 20.0 Years smoked: 35 Smoking pack-years: 35.00 Smoking status: Current every day smoker Tobacco type: cigarettes Second hand tobacco smoke exposure: Yes Alcohol intake: former Substance use: never Substance use type: does not use Do You Feel Safe in your Home?: Yes Lack of Transportation: No Lack of Food: Never True Current Housing: I Have Housing Concerned About Future Housing: No Difficulty Paying Gas/Electric Bills: No Difficulty Paying for Meds: No Currently Unemployed: No Education: High School Diploma/GED Difficulty w/ Childcare or Family Care: No Spiritual care concerns: No <Cindi Sagastume PA-C - Last Filed: 01/28/24 17:20> Exam Const: General: healthy appearing and no acute distress <Lissa Ridge Syed III, DO - Last Filed: 01/28/24 19:01> Nutritional Appearance: well nourished <Lissa Ridge Syed III, DO - Last Filed: 01/28/24 19:01> Orientation/consciousness: patient oriented x3 <Lissa Ridge Syed III, DO - Last Filed: 01/28/24 19:01> Limitations: no limitations <Lissa Ridge Syed III, DO - Last Filed: 01/28/24 19:01> HENMT: Head: normal to inspection <Lissa Ridge Syed III, DO - Last Filed: 01/28/24 19:01> Neck: Neck: normal visual inspection and no meningeal signs <Lissa Ridge Syed III, DO - Last Filed: 01/28/24 19:01> Chest: Chest palpation & inspection: tenderness (right anterolateral ribs) <Lissa Ridge Syed III, DO - Last Filed: 01/28/24 19:01> Resp: Effort & Inspection: normal respiratory effort <Lissa Ridge Syed III, DO - Last Filed: 01/28/24 19:01> Auscultation: clear to auscultation bilaterally <Lissa Ridge Syed III, DO - Last Filed: 01/28/24 19:01> Cardio: Rate: regular rate <Lissa Ridge Syed III, DO - Last Filed: 01/28/24 19:01> Rhythm: regular rhythm <Lissa Ridge Syed III, DO - Last Filed: 01/28/24 19:01> GI: GI Palp: Yes Soft to palpation and No Tenderness to palpation present (GI) <Lissa Ridge Syed III, DO - Last Filed: 01/28/24 19:01> Auscultation: normal bowel sounds <Lissa Ridge Syed III, DO - Last Filed: 01/28/24 19:01> Skin: General skin exam: normal color <Lissa Ridge Syed III, DO - Last Filed: 01/28/24 19:01> Wounds: wounds noted (small non fluctuant abscess right posterior shoulder) <Lissa Ridge Syed III, DO - Last Filed: 01/28/24 19:01> Neuro: General: patient oriented x3, moves all extremities, no meningeal signs and no focal motor deficits <Lissa Ridge Syed III, DO - Last Filed: 01/28/24 19:01> Cranial nerves: Yes Nystagmus not present <Lissa Ridge Syed III, DO - Last Filed: 01/28/24 19:01> Speech: normal speech <Lissa Ridge Syed III, DO - Last Filed: 01/28/24 19:01> Extrem: General: no clubbing, cyanosis or edema and no pedal edema <Lissa Ridge Syed III, DO - Last Filed: 01/28/24 19:01> Other: bruising rto right hip <Lissa Ridge Syed III, DO - Last Filed: 01/28/24 19:01> Psych: Mental Status: mental status grossly normal <Lissa Ridge Syed III, DO - Last Filed: 01/28/24 19:01> Affect: normal affect <Lissa Ridge Syed III, DO - Last Filed: 01/28/24 19:01> Attitude: cooperative <Lissa Ridge Syed III, DO - Last Filed: 01/28/24 19: 01> Course Vital Signs Vital signs: Vital Signs Temperature 97.5 F L 01/28/24 15:30 Pulse Rate 92 01/28/24 15:30 Respiratory Rate 17 01/28/24 15:30 Blood Pressure 172/86 H 01/28/24 15:30 Pulse Oximetry 100 01/28/24 15:30 Temperature 97.5 F L 01/28/24 15:30 Pulse Rate 92 01/28/24 15:30 Respiratory Rate 17 01/28/24 15:30 Blood Pressure 172/86 H 01/28/24 15:30 Pulse Oximetry 100 01/28/24 15:30 <JINNY Gonzalez Last Filed: 01/28/24 17:20> Vital Signs Temperature 97.5 F L 01/28/24 15:30 Pulse Rate 92 01/28/24 15:30 Respiratory Rate 17 01/28/24 15:30 Blood Pressure 172/86 H 01/28/24 15:30 Pulse Oximetry 100 01/28/24 15:30 Temperature 97.5 F L 01/28/24 15:30 Pulse Rate 92 01/28/24 15:30 Respiratory Rate 17 01/28/24 15:30 Blood Pressure 172/86 H 01/28/24 15:30 Pulse Oximetry 100 01/28/24 15:30 <Lissa Syed III, DO - Last Filed: 01/28/24 19:01> MDM - Fall MDM Narrative Medical decision making narrative: MSE by ASHLEY in triage. <JINNY Gonzalez Last Filed: 01/28/24 17:20> MSE by ASHLEY in triage. ct head and c spine neg. ct chest right anterolateral fx rib, CT abd pe;vis hematoma right hip no fx. home on pain meds <Lissa Syed III, DO - Last Filed: 01/28/24 19:01> Discharge Plan Discharge Clinical Impression: Closed rib fracture, Abscess <JINNY Gonzalez Last Filed: 01/28/24 17:20> Patient Disposition: Home, Self-Care <JINNY Gonzalez Last Filed: 01/28/24 17:20> Condition: Stable <Cindi Sagastume PA-C - Last Filed: 01/28/24 17:20> Instructions: Antibiotic Form, Rib Fracture (ED), Abscess (ED) <Cindi Sagastume PA-C - Last Filed: 01/28/24 17:20> Prescriptions: New tetracycline 500 mg tablet 500 mg PO TID Qty: 21 0RF hydrocodone-acetaminophen 5-325 mg tablet 1 tablet PO Q6H PRN (Reason: pain) Qty: 14 0RF No Action ascorbic acid (vitamin C) 1,000 mg capsule 1 g PO DAILY phenytoin sodium extended [Dilantin Extended] 100 mg capsule See Rx Instructions .ROUTE .COMPLEX Qty: 90 12RF Dose Instruction: TAKE 1 CAPSULE BY MOUTH THREE TIMES DAILY Rx Instructions: TAKE 1 CAPSULE BY MOUTH THREE TIMES DAILY aspirin 81 mg Tablet,Chewable 81 mg PO DAILY montelukast [Singulair] 10 mg tablet 10 mg PO DAILY Qty: 10 0RF doxycycline hyclate 100 mg capsule 100 mg PO BID Qty: 14 0RF benzonatate 200 mg capsule 200 mg PO TID PRN (Reason: cough) Qty: 30 0RF buspirone 10 mg tablet 10 mg PO BID loratadine 10 mg tablet 10 mg PO DAILY quetiapine 50 mg tablet 50 mg PO HS losartan 25 mg Tablet 25 mg PO DAILY Qty: 30 1RF <Cindi Sagastume PA-C - Last Filed: 01/28/24 17:20> Follow-up/Referrals: Ceron,Nacho Childs APRN [Primary Care Provider] - <Cindi Sagastume PA-C - Last Filed: 01/28/24 17:20> Stand Alone Forms: Work/School Release IP <Cindi Sagastume PA-C - Last Filed: 01/28/24 17:20>
[2024-01-28] MEDS: HYDROcodone/acetaminophen (*CRX) 5-325 MG TABLET 1 TAB PO (17:20)
[2024-01-28 19:12] VITALS: BP 150/71; PULSE 72; RESP 16; O2SAT 98
== END 2024-01-28 19:25 | disposition home or self-care (01) ==
PROVIDERS: Emergency Provider Emergency Medicine; PCP Nurse Practitioner Family
DX: S22.31XA Fracture of one rib, right side, initial encounter for closed fracture (principal); F17.210 Nicotine dependence, cigarettes, uncomplicated; F41.9 Anxiety disorder, unspecified; F32.A Depression, unspecified; J44.9 Chronic obstructive pulmonary disease, unspecified; I73.9 Peripheral vascular disease, unspecified; G40.909 Epilepsy, unspecified, not intractable, without status epilepticus; W18.2XXA Fall in (into) shower or empty bathtub, initial encounter
CPT/HCPCS: 70450; 71101; 71260; 72125; 74177; 99284; A9270; Q9967

== ENCOUNTER 2024-12-02 17:20 | Emergency (ER) | payer SELFPAY ==
--- NOTE | ~2024-12-02 | XR_ITS ---
Examination: XR chest 2V Clinical History: SOB Comparison: CT chest abdomen pelvis 01/28/2024 Technique: PA and Lateral Findings: Cardiomediastinal silhouette normal size and configuration. Lungs clear. No acute bony abnormality. IMPRESSION: 1. No acute cardiopulmonary findings. Reviewed, dictated and finalized at location R.
[2024-12-02 18:04] VITALS: BP 140/83; PULSE 82; RESP 20; TEMP 36.8; O2SAT 99
--- NOTE | 2024-12-02 20:51 | ECG_ITS ---
Test Date: 2024-12-02 21:19:57 Measurements Intervals [place] Rate: 61 P: 57 MN: 165 QRS: 50 QRSD: 97 T: 65 QT: 411 QTc: 417 Interpretive Statements SINUS RHYTHM NORMAL ECG Compared to ECG 08/21/2023 18:13:51 No significant changes Electronically Signed On 12-03-2024 06:14:55 CDT by Gerhard Wylie D.O.
[2024-12-02 21:28] LABS: Hematocrit 40.5 % (42.0-52.0); Hemoglobin 13.6 g/dL (14.0-18.0); Immature Granulocyte Percent A 0.4 % (0-0.5); Lymphocytes Absolute Auto 2.72 K/mm3 (0.9-3.2); Mean Corpuscular HGB Conc 33.6 g/dl (32-36); Mean Corpuscular Hemoglobin 30.2 pg (26-34); Mean Corpuscular Volume 89.8 fl (80-100); Nucleated Red Blood Cells Absolute Auto 0.000 K/mm3 (0.0-0.012); Nucleated Red Blood Cells Perc 0.0 % (0.0-0.2); Platelet Count Result 277 k/mm3 (150-375); Red Blood Count 4.51 M/mm3 (4.6-6.20); White Blood Count 10.9 K/mm3 (4.5-10.0)
[2024-12-02 21:35] LABS: Anion Gap 7 mmol/L (4-12); Blood Urea Nitrogen 8 mg/dL (9-20); Calcium 9.1 mg/dL (8.4-10.2); Carbon Dioxide 25 mmol/L (22-30); Chloride 103 mmol/L (98-107); Estimated CRCL calculation 97 ml/min; Estimated Glomerular Filt Rate > 60; Glucose 93 mg/dL (65-110); Potassium 3.9 mmol/L (3.4-5.0); Sodium 135 mmol/L (137-145)
[2024-12-02 22:02] LABS: Influenza A QL RT-PCR Negative (Negative); Influenza B QL RT-PCR Negative (Negative); RSV RNA, RT-PCR Negative (Negative); SARS-CoV-2 RNA PCR Negative (Negative)
--- NOTE | 2024-12-02 22:55 | ED.URI ---
HPI - URI/Sore Throat General Chief Complaint: Upper Respiratory Infection Stated Complaint: URI Time Seen by Provider: 12/02/24 20:50 Source: patient Mode of arrival: ambulatory Limitations: no limitations History of Present Illness HPI Narrative: This is a 59 year old male that presents to the ER for cold symptoms. Ongoing over the last couple of days. Reporting shortness of breath, cough. Reports he has been out of his medications as he does not currently have a primary doctor. Reports history of COPD. Still smokes. Denies fevers. Related Data Home Medications ?Medication ?Instructions ?Recorded ?Confirmed ?Last Taken ?Type aspirin 81 mg chewable tablet 81 mg PO DAILY 02/09/19 07/26/21 Unknown History buspirone 10 mg tablet 10 mg PO BID 07/26/21 07/26/21 Unknown History loratadine 10 mg tablet 10 mg PO DAILY 07/26/21 07/26/21 Unknown History quetiapine 50 mg tablet 50 mg PO HS 07/26/21 07/26/21 Unknown History ascorbic acid (vitamin C) 1,000 mg 1 g PO DAILY 04/24/23 Unknown History capsule Allergies Allergy/AdvReac Type Severity Reaction Status Date / Time clindamycin Allergy Intermediate Rash Verified 12/02/24 18:08 Penicillins Allergy Mild Rash Verified 12/02/24 18:08 steroids Allergy Intermediate Hyperactive Uncoded 11/11/24 15:44 Review of Systems Review of Systems: All systems reviewed & are unremarkable except as noted in HPI and below PMFSH Past Medical History Medical History Anxiety with depression Leg fracture, left as a child COPD (chronic obstructive pulmonary disease) PAD (peripheral artery disease) Left femoral stent placement Seizures Surgical History Surgical History History of adenoidectomy History of cholecystectomy complicated by cardiac arrest during the procedure Family History Family History Sibling Heart disease CAD in his 2 brothers in there 60's; another brother with sudden Social History Social History Social History: Denies alcohol use. Denies drug use. Lives with his girlfriend. Full code. Nominates his girlfriend Garrison Watkins to be the individual make medical decisions for him if he is unable. Smoking packs per day: 1 Smoking cigarettes per day: 20.0 Years smoked: 35 Smoking pack-years: 35.00 Smoking status: Current every day smoker Tobacco type: cigarettes Second hand tobacco smoke exposure: Yes Alcohol intake: former Substance use: never Substance use type: does not use Do You Feel Safe in your Home?: Yes Lack of Transportation: No Lack of Food: Never True Current Housing: I Have Housing Concerned About Future Housing: No Difficulty Paying Gas/Electric Bills: No Difficulty Paying for Meds: No Currently Unemployed: No Education: High School Diploma/GED Difficulty w/ Childcare or Family Care: No Spiritual care concerns: No Exam Narrative: GENERAL: Well-appearing, well-nourished, and in no acute distress. HEAD: Normocephalic, atraumatic. EYES: EOMI. ENT: Nares clear, no rhinorrhea or epistaxis. Mucous membranes moist. Oropharynx without tonsillar hypertrophy exudate or other lesions. Bilateral TMs pearly lees non-bulging NECK: Supple. No adenopathy or masses. CHEST: No respiratory distress. Mild, expiratory wheezing. No rales or rhonchi HEART: Regular rate and rhythm. No murmur heard. Normal peripheral pulses. EXTREMITIES: Normal range of motion. No edema. SKIN: Warm, dry, no rash. NEURO: No focal deficits. Alert and oriented x3. PSYCH: Normal mood and affect Course Vital Signs Vital signs: Vital Signs Temperature 98.2 F 12/02/24 18:04 Pulse Rate 82 12/02/24 18:04 Respiratory Rate 20 12/02/24 18:04 Blood Pressure 140/83 12/02/24 18:04 Pulse Oximetry 99 12/02/24 18:04 Oxygen Delivery Room Air 12/02/24 18:04 Temperature 98.2 F 12/02/24 18:04 Pulse Rate 82 12/02/24 18:04 Respiratory Rate 20 12/02/24 18:04 Blood Pressure 140/83 12/02/24 18:04 Pulse Oximetry 99 12/02/24 18:04 Oxygen Delivery Room Air 12/02/24 18:04 MDM - URI/Sore Throat MDM Narrative Medical decision making narrative: Patient presents the emergency department for cold symptoms ongoing over the last couple of days. Also reporting he is out some of his chronic medications. He is afebrile and nontoxic appearing. His vitals are stable. CBC with mild leukocytosis to 10.9. Metabolic panel without concerning findings. Influenza, RSV and COVID screens are negative. Chest x-ray without acute cardiopulmonary abnormality. Patient will be refilled his Singulair and given prescription for albuterol. Refuses steroids for COPD exacerbation at this time. Refused nebulizer treatment in the ER. He is to follow up with primary provider. He was given warnings to return to the ER Differential Diagnosis Differential diagnosis: Likely upper respiratory infection, viral infection, bronchitis, influenza and other (copd exacerbation) Lab Data Attestation: I reviewed the patient's lab results. 12/02/24 21:15 12/02/24 21:15 Labs: Lab Results 12/02/24 Range/Units 21:15 WBC 10.9 H (4.5-10.0) K/mm3 RBC 4.51 L (4.6-6.20) M/mm3 Hgb 13.6 L (14.0-18.0) g/dL Hct 40.5 L (42.0-52.0) % MCV 89.8 (80-100) fl MCH 30.2 (26-34) pg MCHC 33.6 (32-36) g/dl RDW 14.1 (11.5-14.5) % Plt Count 277 (150-375) k/mm3 MPV 9.8 (7.4-10.4) fl Immature Gran % (Auto) 0.4 (0-0.5) % Neut % (Auto) 62.1 (45.5-73.1) % Lymph % (Auto) 25.0 (18.3-44.2) % [place] % (Auto) 9.8 H (2.6-8.5) % Eos % (Auto) 2.1 (0-4.4) % Baso % (Auto) 0.6 (0.2-1.2) % Lymph # (Auto) 2.72 (0.9-3.2) K/mm3 [place] # (Auto) 1.1 H (0.1-0.6) K/mm3 Eos # (Auto) 0.2 (0-0.3) K/mm3 Baso # (Auto) 0.1 (0.0-0.1) K/mm3 Abs Immat Gran (auto) 0.04 H (0.00-0.031) K/mm3 Absolute Neuts (auto) 6.8 H (1.3-6.7) K/mm3 Absolute Nucleated RBC 0.000 (0.0-0.012) K/mm3 Nucleated RBC % 0.0 (0.0-0.2) % Sodium 135 L (137-145) mmol/L Potassium 3.9 (3.4-5.0) mmol/L Chloride 103 (98-107) mmol/L Carbon Dioxide 25 (22-30) mmol/L Anion Gap 7 (4-12) mmol/L BUN 8 L (9-20) mg/dL Creatinine 0.73 (0.7-1.3) mg/dL Estim Creat Clear Calc 97 ml/min Estimated GFR > 60 (59 - ) Glucose 93 (65-110) mg/dL Calcium 9.1 (8.4-10.2) mg/dL Influenza A (RT-PCR) Negative (Negative) Influenza B (RT-PCR) Negative (Negative) RSV (RT-PCR) Negative (Negative) SARS-CoV-2 RNA (RT-PCR) Negative (Negative) Imaging Data Radiologist's impression: ITS Impressions Chest X-Ray 12/02/24 20:56 IMPRESSION: 1. No acute cardiopulmonary findings. ECG Data EKG #1: ECG completion date: 12/02/24 EKG Interpretation: normal rate, no ST changes and normal QT Critical Care Time Critical Care Time Critical Care Time: No Discharge Plan Discharge Clinical Impression: COPD exacerbation Patient Disposition: Home Condition: Stable Instructions: How to Stop Smoking (ED), COPD (Chronic Obstructive Pulmonary Disease) (ED) Additional Instructions: Return to the emergency department for worsening symptoms, or any other concerns Remain well-hydrated, get plenty of rest. Take Tylenol or Motrin [id number] for pain as needed. Flonase for nasal congestion. Zyrtec for runny nose. Take Singulair as prescribed. Albuterol 2 puffs every 4-6 hours as needed for shortness of breath or wheezing Follow up with primary care doctor Patient Language: Syriac Prescriptions: New buspirone 10 mg tablet 10 mg PO BID PRN (Reason: anxiety) Qty: 10 0RF montelukast [Singulair] 10 mg tablet 10 mg PO DAILY 30 Days Qty: 30 0RF albuterol sulfate [Ventolin HFA] 90 mcg/actuation HFA aerosol inhaler 2 puff inhalation QID PRN (Reason: shortness of breath or wheezing) Qty: 8.5 0RF No Action ascorbic acid (vitamin C) 1,000 mg capsule 1 g PO DAILY phenytoin sodium extended [Dilantin Extended] 100 mg capsule See Rx Instructions .ROUTE .COMPLEX Qty: 90 12RF Dose Instruction: TAKE 1 CAPSULE BY MOUTH THREE TIMES DAILY Rx Instructions: TAKE 1 CAPSULE BY MOUTH THREE TIMES DAILY aspirin 81 mg Tablet,Chewable 81 mg PO DAILY montelukast [Singulair] 10 mg tablet 10 mg PO DAILY Qty: 10 0RF buspirone 10 mg tablet 10 mg PO BID loratadine 10 mg tablet 10 mg PO DAILY quetiapine 50 mg tablet 50 mg PO HS losartan 25 mg Tablet 25 mg PO DAILY Qty: 30 1RF Follow-up/Referrals: PHYSICIAN,G[facility] STATION CASHIER [Primary Care Provider, Internal Medicine] Anita Bryson DO [Physician, Family Practice] Stand Alone Forms: Work/School Release IP
== END 2024-12-02 23:13 | disposition home or self-care (01) ==
PROVIDERS: Student in an Organized Health Care Education/Training Program; Emergency Provider Physician Assistant
DX: J44.1 Chronic obstructive pulmonary disease with (acute) exacerbation (principal); F17.210 Nicotine dependence, cigarettes, uncomplicated; Z20.822 Contact with and (suspected) exposure to COVID-19
CPT/HCPCS: 36415; 71046; 80048; 85025; 87637; 93005; 99283

== ENCOUNTER 2024-12-12 17:08 | Emergency (ER) | payer SELFPAY ==
[2024-12-12] VITALS (26 sets, daily range): BP systolic 139–158; BP diastolic 76–132; PULSE 62–92; RESP 10–25; O2SAT 86–100
--- NOTE | ~2024-12-12 | XR_ITS ---
EXAMINATION: XR chest 2V DATE: 12/12/2024 18:46 INDICATION: Shortness of breath, cough and chest pain TECHNIQUE: PA and lateral views of the chest were obtained. COMPARISON: Chest radiograph dated 12/02/2024 FINDINGS: The lungs are clear with no focal airspace opacities, pulmonary edema, pleural effusion or pneumothorax. The cardiomediastinal silhouette is normal. Mild midthoracic kyphosis with chronic mild anterior wedging of a few mid thoracic vertebral bodies. Moderate thoracic spondylosis. Cholecystectomy clips in the upper abdomen. IMPRESSION: 1. No acute cardiopulmonary disease. Reviewed, dictated and finalized at location A.
--- NOTE | 2024-12-12 17:17 | ECG_ITS ---
Test Date: 2024-12-12 17:19:45 Measurements Intervals [place] Rate: 72 P: 91 NH: 176 QRS: 63 QRSD: 86 T: 55 QT: 366 QTc: 402 Interpretive Statements SINUS RHYTHM BASELINE ARTIFACT- I, II, III, AVR, AVL, AVF, V1-V6 NORMAL ECG Compared to ECG 12/02/2024 21:19:57 No significant changes Electronically Signed On 12-12-2024 18:36:41 CDT by Gerhard Wylie D.O.
--- NOTE | 2024-12-12 18:01 | ED.CHESTPAIN ---
HPI - Chest Pain General Chief Complaint: Chest Pain Stated Complaint: chest pain headache with difficulty breathing Time Seen by Provider: 12/12/24 17:28 Source: patient and old records reviewed Mode of arrival: ambulatory Limitations: no limitations History of Present Illness HPI narrative: Patient is a 59-year-old male, with PMH of COPD, who presents the ED with report of LOIDA COBOS. Patient reports hx of chronic sinus issues. Does not take anything for this. States over the last several days, he has been having increased shortness of breath, chest pain, lower back myalgias. Reports dry cough. Was seen in the ED here on 12/02 for similar sx's, but states they did not do much for him. Per records, patient reportedly declined steroids or nebulizer treatment in the ED. He has been using his inhalers at home without significant improvement. Denies significant wheezing. Denies fevers, known sick contacts. Also reports increased anxiety recently. Has previously been on buspirone for anxiety. States he is currently out of several of his medicines and is waiting to see a new primary care doctor on the of this month. Related Data Home Medications ?Medication ?Instructions ?Recorded ?Confirmed ?Last Taken ?Type aspirin 81 mg chewable tablet 81 mg PO DAILY 02/09/19 07/26/21 Unknown History buspirone 10 mg tablet 10 mg PO BID 07/26/21 07/26/21 Unknown History loratadine 10 mg tablet 10 mg PO DAILY 07/26/21 07/26/21 Unknown History quetiapine 50 mg tablet 50 mg PO HS 07/26/21 07/26/21 Unknown History ascorbic acid (vitamin C) 1,000 mg 1 g PO DAILY 04/24/23 Unknown History capsule Allergies Allergy/AdvReac Type Severity Reaction Status Date / Time clindamycin Allergy Intermediate Rash Verified 12/02/24 18:08 Penicillins Allergy Mild Rash Verified 12/02/24 18:08 steroids Allergy Intermediate Hyperactive Uncoded 11/11/24 15:44 Review of Systems Review of Systems: All systems reviewed & are unremarkable except as noted in HPI. All systems reviewed & are unremarkable except as noted in HPI and below PMFSH Past Medical History Medical History Anxiety with depression Leg fracture, left as a child COPD (chronic obstructive pulmonary disease) PAD (peripheral artery disease) Left femoral stent placement Seizures Surgical History Surgical History History of adenoidectomy History of cholecystectomy complicated by cardiac arrest during the procedure Family History Family History Sibling Heart disease CAD in his 2 brothers in there 60's; another brother with sudden Social History Social History Social History: Denies alcohol use. Denies drug use. Lives with his girlfriend. Full code. Nominates his girlfriend Garrison Watkins to be the individual make medical decisions for him if he is unable. Smoking packs per day: 1 Smoking cigarettes per day: 20.0 Years smoked: 35 Smoking pack-years: 35.00 Smoking status: Current every day smoker Tobacco type: cigarettes Second hand tobacco smoke exposure: Yes Alcohol intake: former Substance use: never Substance use type: does not use Do You Feel Safe in your Home?: Yes Lack of Transportation: No Lack of Food: Never True Current Housing: I Have Housing Concerned About Future Housing: No Difficulty Paying Gas/Electric Bills: No Difficulty Paying for Meds: No Currently Unemployed: No Education: High School Diploma/GED Difficulty w/ Childcare or Family Care: No Spiritual care concerns: No Exam Narrative: GENERAL: Appears older than stated age, non-toxic, in no acute distress. HEAD: Normocephalic, atraumatic. RESPIRATORY: Airway patent, respirations mildly tachypneic but nonlabored. Diffuse rhonchi throughout bases bilaterally. Faint wheezing. CARDIOVASCULAR: Regular rate and rhythm without murmurs, rubs, or gallops. Peripheral pulses intact. MUSCULOSKELETAL: Moves all extremities. No gross deformities. No peripheral edema. SKIN: Warm, dry, normal color. NEURO: A&O X3. Speech clear. Cranial nerves II-XII grossly intact. Steady gait. No ataxic movements. PSYCHIATRIC: Appropriate mood and affect. Normal interaction. Course Vital Signs Vital signs: Vital Signs Pulse Rate 71 12/12/24 17:18 Respiratory Rate 16 12/12/24 17:18 Blood Pressure 145/84 H 12/12/24 17:18 Pulse Oximetry 100 12/12/24 17:18 Oxygen Delivery Room Air 12/12/24 17:18 Pulse Rate 76 12/12/24 22:46 Respiratory Rate 15 12/12/24 22:46 Blood Pressure 158/132 H 12/12/24 19:30 Pulse Oximetry 98 12/12/24 22:46 Oxygen Delivery Room Air 12/12/24 17:27 MDM - Chest Pain MDM Narrative Medical decision making narrative: Patient presented to ED with several day history of URI complaints, chronic sinus issues, shortness of breath, chest pain, cough, congestion. Patient mildly tachypneic upon arrival. Afebrile. Oxygen stable on room air. EKG with sinus rhythm, lots of artifact, no concerning ST changes. Given nebulizer treatment. Declined steroids. CXR clear. No evidence of pneumonia. Laboratory studies without leukocytosis, significant anemia, electrolyte derangement. Kidney function is stable. Mag within normal range. Troponin undetectable BNP within normal range D-dimer within normal range Viral swabs negative HEART score 2 3 hr trop also undetectable Discussed lab and imaging findings, overall reassuring workup with patient. Low suspicion for ACS at this time. Suspicious for viral URI, chronic rhinosinusitis. He seems to be most worried about his chronic sinus issues. He is also worried about anxiety. He has previously been prescribed buspirone. Had a refill of this given to him at last ED visit. I will give a dose of buspirone here in the ED, but advised it is inappropriate for emergency providers to continuously be refilling this medication for him. He voiced understanding. He has a follow-up appointment with his PCP in the next 2 weeks. Discussed further [id number] medications to take for sinus issues. Discussed possibly of viral URI. Advised to continue inhalers as needed. Discussed very strict return precautions. Patient voiced understanding. Patient and family in agreement with going home. Discharged in stable condition. Vital signs stable at time of D/C. Medical Records Data Attestation: I reviewed the patient's medical records. Lab Data Attestation: I reviewed the patient's lab results. 12/12/24 19:05 12/12/24 19:05 Labs: Lab Results 12/12/24 12/12/24 Range/Units 19:05 21:32 WBC 9.3 (4.5-10.0) K/mm3 RBC 4.49 L (4.6-6.20) M/mm3 Hgb 13.7 L (14.0-18.0) g/dL Hct 40.5 L (42.0-52.0) % MCV 90.2 (80-100) fl MCH 30.5 (26-34) pg MCHC 33.8 (32-36) g/dl RDW 14.5 (11.5-14.5) % Plt Count 244 (150-375) k/mm3 MPV 9.9 (7.4-10.4) fl Immature Gran % (Auto) 0.4 (0-0.5) % Neut % (Auto) 59.8 (45.5-73.1) % Lymph % (Auto) 26.6 (18.3-44.2) % [place] % (Auto) 10.2 H (2.6-8.5) % Eos % (Auto) 2.2 (0-4.4) % Baso % (Auto) 0.8 (0.2-1.2) % Lymph # (Auto) 2.47 (0.9-3.2) K/mm3 [place] # (Auto) 1.0 H (0.1-0.6) K/mm3 Eos # (Auto) 0.2 (0-0.3) K/mm3 Baso # (Auto) 0.1 (0.0-0.1) K/mm3 Abs Immat Gran (auto) 0.04 H (0.00-0.031) K/mm3 Absolute Neuts (auto) 5.6 (1.3-6.7) K/mm3 Absolute Nucleated RBC 0.000 (0.0-0.012) K/mm3 Nucleated RBC % 0.0 (0.0-0.2) % PT 13.5 (11.1-14.7) Seconds INR 1.0 APTT 26.7 (22.3-36.8) Seconds D-Dimer 0.42 (<0.48) ug/mL Sodium 137 (137-145) mmol/L Potassium 3.8 (3.4-5.0) mmol/L Chloride 105 (98-107) mmol/L Carbon Dioxide 23 (22-30) mmol/L Anion Gap 9 (4-12) mmol/L BUN 12 (9-20) mg/dL Creatinine 0.76 (0.7-1.3) mg/dL Estim Creat Clear Calc 94 ml/min Estimated GFR > 60 (59 - ) Glucose 114 H (65-110) mg/dL Calcium 8.9 (8.4-10.2) mg/dL Magnesium 2.1 (1.6-2.3) mg/dL Total Bilirubin 0.2 (0.2-1.3) mg/dL AST 38 (17-59) U/L ALT 29 (6-50) U/L Alkaline Phosphatase 103 (38-126) U/L Troponin I < 0.012 < 0.012 (0.000-0.034) ng/mL NT-Pro-B Natriuret Pep < 20 (19.9-100) pg/mL Total Protein 7.0 (6.3-8.2) g/dL Albumin 4.2 (3.5-5.1) g/dL Influenza A (RT-PCR) Negative (Negative) Influenza B (RT-PCR) Negative (Negative) RSV (RT-PCR) Negative (Negative) SARS-CoV-2 RNA (RT-PCR) Negative (Negative) Imaging Data Attestation: I personally reviewed and interpreted this imaging study as follows: Radiologist's impression: ITS Impressions Chest X-Ray 12/12/24 18:49 IMPRESSION: 1. No acute cardiopulmonary disease. ECG Data EKG #1: Attestation: I personally reviewed and interpreted this ECG as follows: ECG completion date: 12/12/24 ECG completion time: 17:19 EKG Interpretation: normal rate (72), sinus rhythm, non-specific ST changes and other (lots of baseline artifact) Discharge Plan Discharge Clinical Impression: Shortness of breath, Anxiety, Atypical chest pain Upper respiratory infection Qualifiers: URI type: unspecified URI Qualified Code(s): J06.9 - Acute upper respiratory infection, unspecified Patient Disposition: Home Condition: Stable Instructions: Antibiotic Form, Upper Respiratory Infection (ED), Rhinosinusitis (ED), Viral Syndrome (ED), Anxiety (ED) Additional Instructions: Recommend Tylenol/Ibuprofen for pain as needed. Recommend over the counter Flonase, saline nose sprays, sudafed, mucinex for nasal congestion. Recommend [id number] Claritin/Zyrtec for runny nose. Take Singulair as prescribed. Continue your home Albuterol 2 puffs every 4-6 hours as needed for shortness of breath or wheezing. Follow with primary care doctor for further evaluation. Return to the ED if you experience worsening or severe chest pain, difficulty breathing, unable to keep down food or drink, severe pain, or any other symptoms of concern. Patient Language: Mohawk Prescriptions: No Action ascorbic acid (vitamin C) 1,000 mg capsule 1 g PO DAILY phenytoin sodium extended [Dilantin Extended] 100 mg capsule See Rx Instructions .ROUTE .COMPLEX Qty: 90 12RF Dose Instruction: TAKE 1 CAPSULE BY MOUTH THREE TIMES DAILY Rx Instructions: TAKE 1 CAPSULE BY MOUTH THREE TIMES DAILY aspirin 81 mg Tablet,Chewable 81 mg PO DAILY montelukast [Singulair] 10 mg tablet 10 mg PO DAILY Qty: 10 0RF buspirone 10 mg tablet 10 mg PO BID loratadine 10 mg tablet 10 mg PO DAILY quetiapine 50 mg tablet 50 mg PO HS losartan 25 mg Tablet 25 mg PO DAILY Qty: 30 1RF buspirone 10 mg tablet 10 mg PO BID PRN (Reason: anxiety) Qty: 10 0RF montelukast [Singulair] 10 mg tablet 10 mg PO DAILY 30 Days Qty: 30 0RF albuterol sulfate [Ventolin HFA] 90 mcg/actuation HFA aerosol inhaler 2 puff inhalation QID PRN (Reason: shortness of breath or wheezing) Qty: 8.5 0RF Follow-up/Referrals: PHYSICIAN,BROTH SETTER [Primary Care Provider, Internal Medicine] Stand Alone Forms: Work/School Release IP Time of Disposition: 22:45 Quality HEART score for chest pain patients History: slightly suspicious ECG: normal Age: > 45 and < 65 years Risk factors: 1 or 2 risk factors Troponin: < or = to 1x normal limit Heart score: 2
[2024-12-12] MEDS: IPRATROPIUM 0.5 MG/ALBUTEROL SULFATE 2.5 MG (BASE) AMPUL.NEB 3 ML INHALATION (18:16)
[2024-12-12 19:15] LABS: Hematocrit 40.5 % (42.0-52.0); Hemoglobin 13.7 g/dL (14.0-18.0); Immature Granulocyte Percent A 0.4 % (0-0.5); Lymphocytes Absolute Auto 2.47 K/mm3 (0.9-3.2); Mean Corpuscular HGB Conc 33.8 g/dl (32-36); Mean Corpuscular Hemoglobin 30.5 pg (26-34); Mean Corpuscular Volume 90.2 fl (80-100); Nucleated Red Blood Cells Absolute Auto 0.000 K/mm3 (0.0-0.012); Nucleated Red Blood Cells Perc 0.0 % (0.0-0.2); Platelet Count Result 244 k/mm3 (150-375); Red Blood Count 4.49 M/mm3 (4.6-6.20); White Blood Count 9.3 K/mm3 (4.5-10.0)
[2024-12-12 19:42] LABS: Alanine Aminotransferase 29 U/L (6-50); Albumin Level 4.2 g/dL (3.5-5.1); Alkaline Phosphatase 103 U/L (38-126); Anion Gap 9 mmol/L (4-12); Aspartate Amino Transferase 38 U/L (17-59); Bilirubin,Total 0.2 mg/dL (0.2-1.3); Blood Urea Nitrogen 12 mg/dL (9-20); Calcium 8.9 mg/dL (8.4-10.2); Carbon Dioxide 23 mmol/L (22-30); Chloride 105 mmol/L (98-107); Estimated CRCL calculation 94 ml/min; Estimated Glomerular Filt Rate > 60; Glucose 114 mg/dL (65-110); Magnesium 2.1 mg/dL (1.6-2.3); Potassium 3.8 mmol/L (3.4-5.0); Sodium 137 mmol/L (137-145); Total Protein 7.0 g/dL (6.3-8.2)
[2024-12-12 19:51] LABS: Influenza A QL RT-PCR Negative (Negative); Influenza B QL RT-PCR Negative (Negative); RSV RNA, RT-PCR Negative (Negative); SARS-CoV-2 RNA PCR Negative (Negative)
[2024-12-12 19:52] LABS: NT Pro B Type Natriuretic Pept < 20 pg/mL (19.9-100); Troponin I < 0.012 ng/mL (0.000-0.034)
[2024-12-12 20:04] LABS: INR 1.0; Prothrombin Time 13.5 Seconds (11.1-14.7)
[2024-12-12 20:05] LABS: Partial Thromboplastin Time 26.7 Seconds (22.3-36.8)
--- NOTE | 2024-12-12 21:29 | ECG_ITS ---
Test Date: 2024-12-12 21:46:17 Measurements Intervals [place] Rate: 63 P: 60 ND: 179 QRS: 58 QRSD: 86 T: 49 QT: 397 QTc: 409 Interpretive Statements SINUS RHYTHM NORMAL ECG Compared to ECG 12/12/2024 17:19:45 No significant changes Electronically Signed On 12-13-2024 09:00:49 CDT by Gerhard Wylie D.O.
[2024-12-12 22:09] LABS: Troponin I < 0.012 ng/mL (0.000-0.034)
== END 2024-12-12 23:09 | disposition home or self-care (01) ==
PROVIDERS: Emergency Provider Physician Assistant
DX: J06.9 Acute upper respiratory infection, unspecified (principal); R07.89 Other chest pain; F41.8 Other specified anxiety disorders; J44.9 Chronic obstructive pulmonary disease, unspecified; I73.9 Peripheral vascular disease, unspecified; F17.210 Nicotine dependence, cigarettes, uncomplicated; Z90.49 Acquired absence of other specified parts of digestive tract; Z79.82 Long term (current) use of aspirin; Z79.899 Other long term (current) drug therapy
CPT/HCPCS: 36415; 71046; 80053; 83735; 83880; 84484; 85025; 85380; 85610; 85730; 87637; 93005; 94640; 99284; A9270